=== PATIENT | male | born 1935 | race Hispanic/Latino ===

== ENCOUNTER → 2018-06-06 | Outpatient (CLI) | payer MEDICARE ==
[~2018-06-06] MED LIST: IOPAMIDOL 370 MG/ML 200 ML INFUS..BTL INJ ONE; SODIUM CHLORIDE 0.9% 50ML 50 ML ONE
[2018-06-06 11:28] LABS: BLOOD UREA NITROGEN 29 mg/dL (7-26); BUN/CREATININE RATIO 25 (6-25); CREATININE, SERUM 1.14 mg/dL (0.72-1.25); EST GLOMERULAR FILTRATION RATE > 60 ML/MIN (60-)
--- NOTE | 2018-06-06 12:40 | Diagnostic Imaging Report ---
TECHNIQUE: CT of the chest, abdomen and pelvis WITH intravenous contrast. INDICATION: Weight loss/esophageal mass TECHNIQUE: The chest, abdomen, and pelvis was scanned utilizing a multidetector helical scanner from the lung apex to the pubic symphysis after administration of IV contrast and oral contrast (900 cc of water). Coronal and sagittal reformations were obtained. IV CONTRAST: 100 cc of Isovue-370 RADIATION DOSE: Total DLP: 347 mGy*cm Estimated effective dose: (DLP x 0.014 x size factor) mSv COMPLICATIONS: None FINDINGS: LINES AND TUBES: None LUNGS AND AIRWAYS: The central airways are patent. There is a 3 mm solid pulmonary nodule in the lingula on series 4, image 92, a 3 mm left lower lobe subpleural nodule on image 96, and a 4 mm subpleural pulmonary nodule in the right lower lobe on image 76. Atelectatic change or scarring in the left upper lobe on image 69. PLEURA: The pleural spaces are clear. HEART AND MEDIASTINUM: The esophagus is severely dilated and is filled with fluid and debris. There may be circumferential distal esophageal thickening at the GE junction, with resultant obstruction. No definite esophageal mass is visualized. The thyroid gland is normal. No significant mediastinal, hilar or axillary lymphadenopathy is seen. Scattered aortic and coronary atherosclerotic changes. No evidence of cardiomegaly or pericardial effusion. HEPATOBILIARY: There is a 9 mm hepatic dome hypodensity, too small to characterize, but likely representing a cyst. No biliary ductal dilatation. SPLEEN: No splenomegaly. PANCREAS: No focal masses or ductal dilatation. ADRENALS: No adrenal nodules. KIDNEYS/URETERS: No hydronephrosis, stones, or solid mass lesions. There is a 4 cm simple cyst in the right mid pole kidney. Subcentimeter hypodensities in bilateral kidneys are too small to characterize, but likely represent cysts. There is a 1.5 cm hypodense lesion in the left mid pole kidney on series 2, image 70 (26 Hounsfield units) and 1.2 cm lesion in the left lower pole kidney on image 77 (23 HU). PELVIC ORGANS/BLADDER: The bladder is unremarkable. Prostate fiducial markers are noted. PERITONEUM / RETROPERITONEUM: No free air or fluid. LYMPH NODES: No lymphadenopathy. VESSELS: Atherosclerotic calcifications of the abdominal aorta and branch vessels. GI TRACT: No distention or wall thickening. BONES AND SOFT TISSUES: Unremarkable. IMPRESSION: Severely dilated esophagus containing fluid and debris with possible circumferential esophageal thickening at the GE junction. No definite esophageal mass is visualized. Differential includes pseudoachalasia from malignancy or achalasia. An endoscopy and swallow study would be helpful for further evaluation. Bilateral solid pulmonary nodules measuring up to 4 mm. A follow-up chest CT may be considered in 12 months. Bilateral renal cysts. Indeterminate 1.2 and 1.5 cm hypodense cystic lesions in the left kidney, incompletely evaluated. Renal ultrasound may be considered for further evaluation. Signed by: Dr. Aden Rainey MD on 06/06/2018 12:36 PM
== END ==
LOC: CT 10:48
PROVIDERS: ATTEND Internal Medicine Gastroenterology
DX: K22.8 Other specified diseases of esophagus (principal); R63.4 Abnormal weight loss; Z68.1 Body mass index [BMI] 19.9 or less, adult
CPT/HCPCS: 36415; 71260; 74177; 82565; 84520; Q9967